=== PATIENT | female | born 1965 | race Caucasian/White ===

== ENCOUNTER 2018-11-04 08:49 | Outpatient (CLI) | payer OTHER ==
--- NOTE | 2018-11-04 09:09 | RAD ---
AP and lateral views right femur. HISTORY: Pain AP and lateral views right femur obtained. A right knee arthroplasty seen. The right femur is unremarkable. No evidence of right femoral fractur es, subluxations or bony lesions seen. IMPRESSION: normal 2 views right femur.
== END 2018-11-04 08:50 | disposition home or self-care (01) ==
LOC: BICRAD 08:49
PROVIDERS: ATTEND Family Medicine
DX: M79.651 Pain in right thigh (principal)

== ENCOUNTER 2018-11-19 08:06 | Outpatient (CLI) | payer OTHER ==
--- NOTE | 2018-12-11 08:26 | MMO ---
Bilateral MAMMO Bilat Screen [facility]. CLINICAL HISTORY: Patient is 52 years old and is seen for screening. The patient has no family history of breast cancer. The patient has no personal history of cancer. VIEWS: The views performed were: bilateral craniocaudal with tomosynthesis; bilateral mediolateral oblique with tomosynthesis; and bilateral exaggerated craniocaudal. MAMMOGRAM FINDINGS: The breasts are heterogeneously dense, which could obscure a lesion on mammography. There are benign appearing calcifications seen in both breasts. There are no suspicious masses, suspicious calcifications, or new areas of architectural distortion. IMPRESSION: THERE IS NO MAMMOGRAPHIC EVIDENCE OF MALIGNANCY. A ROUTINE FOLLOW-UP MAMMOGRAM IN 1 YEAR IS RECOMMENDED. THE RESULTS OF THIS EXAM WERE SENT TO THE PATIENT. ACR BI-RADS Category 2 - Benign finding MAMMOGRAPHY NOTE: 1. A negative mammogram report should not delay a biopsy if a dominant of clinically suspicious mass is present. 2. Approximately 10% to 15% of breast cancers are not detected by mammography. 3. Adenosis and dense breasts may obscure an underlying neoplasm.
== END 2018-11-19 08:07 | disposition home or self-care (01) ==
LOC: BICMAMMO 08:06
PROVIDERS: ATTEND Family Medicine
DX: Z12.31 Encounter for screening mammogram for malignant neoplasm of breast (principal)
CPT/HCPCS: 77063; 77067

== ENCOUNTER 2018-11-24 08:46 | Outpatient (CLI) | payer OTHER ==
--- NOTE | 2018-11-24 11:34 | CT ---
LUMBAR SPINE CT WITHOUT IV CONTRAST: Date: 11/24/18 HISTORY: Post laminectomy syndrome, lumbar stenosis, intervertebral disc disorder with radiculopathy. COMPARISON: None. FINDINGS: Generalized disc desiccation changes and ligament and facet hypertrophic changes. Pedicle screw placement changes at L3, L4, L5, and S1. No acute fracture or dislocation. T12-L1: Unremarkable. L1-L2: Disc osteophytosis with mild lateral recess stenosis and mild foraminal narrowing. L2-L3: Very severe disc desiccation changes and disc osteophytosis with severe central canal and lat eral recess stenosis, and moderate bilateral foraminal stenosis. L3-L4: Somewhat obscured by metal artifact. No overt stenosis. L4-L5: Laminectomy change without overt associated stenosis. L5-S1: Considerably obscured by metal artifact. No overt stenosis. IMPRESSION: Postoperative laminectomy and pedicle screw placement changes at L3, L4, L5, and S1. Severe disc narr owing and disc osteophytosis at L2-L3 with canal, lateral recess, and foraminal stenosis. Other findi ngs as above. POS: OLIVE
== END 2018-11-24 08:47 | disposition home or self-care (01) ==
LOC: BICCT 08:46
PROVIDERS: ATTEND Specialist
DX: M96.1 Postlaminectomy syndrome, not elsewhere classified (principal); M51.16 Intervertebral disc disorders with radiculopathy, lumbar region; M48.061 Spinal stenosis, lumbar region without neurogenic claudication; M25.78 Osteophyte, vertebrae; Z98.890 Other specified postprocedural states
CPT/HCPCS: 72131